=== PATIENT | male | born 1935 | race Caucasian/White ===

== ENCOUNTER → 2017-01-28 | Outpatient (CLI) | payer MEDICARE, BC ==
[2017-01-28 11:19] LABS: PROTHROMBIN TIME 25.2 SEC (11.4-15.4)
== END ==
LOC: OD 10:45
PROVIDERS: ATTEND Family Medicine
DX: I48.2 Chronic atrial fibrillation (principal); Z79.01 Long term (current) use of anticoagulants
CPT/HCPCS: 36415; 85610

== ENCOUNTER → 2017-03-22 | Outpatient (CLI) | payer MEDICARE, BC ==
--- NOTE | 2017-03-22 11:15 | RADIOLOGY REPORT (SQ) ---
EXAM DESCRIPTION: U/S RETROPERITON LTD COMPLETED DATE/TIME: 03/22/2017 11:05 am REASON FOR STUDY: ABDOMINAL AORTIC ANEURYSM W/O RUPTURE I71.4 ABDOMINAL AORTIC ANEURYSM, WITHOUT RU PTURE COMPARISON: None. TECHNIQUE: Static and dynamic grayscale images acquired of the aorta and stored on PACs. Selected co victorina Doppler and spectral images recorded. LIMITATIONS: None. FINDINGS: AORTIC CALIBER MAXIMAL PROXIMAL: 2.5 cm. MID: 2.9 cm. DISTAL: 1.8 cm. ILIAC DIAMETER RIGHT: 1.0 cm. LEFT: 1.1 cm. OTHER: No other significant finding. IMPRESSION: NO ABDOMINAL AORTIC ANEURYSM. TECHNICAL DOCUMENTATION: JOB ID: [id number] [employer]- All Rights Reserved
== END ==
LOC: RAD 10:10
PROVIDERS: ATTEND Specialist
DX: I71.4 Abdominal aortic aneurysm, without rupture (principal)
CPT/HCPCS: 76775

== ENCOUNTER → 2017-04-06 | Outpatient (CLI) | payer MEDICARE, BC ==
[2017-04-06 15:01] LABS: PROTHROMBIN TIME 31.5 SEC (11.4-15.4)
== END ==
LOC: OD 14:15
PROVIDERS: ATTEND Internal Medicine
DX: E78.4 Other hyperlipidemia (principal); I48.1 Persistent atrial fibrillation; R00.2 Palpitations; R06.02 Shortness of breath; I71.4 Abdominal aortic aneurysm, without rupture; I74.4 Embolism and thrombosis of arteries of extremities, unspecified; Z79.899 Other long term (current) drug therapy
CPT/HCPCS: 36415; 85610